=== PATIENT | female | born 2000 ===

== ENCOUNTER 2019-08-06 10:13 | Inpatient (IN) | payer OTHER ==
[~2019-08-06] VITALS: Ht 165.1 cm; Wt 65.8 kg
[2019-08-06] MEDS ORDERED: PRENATAL CAPLE1 EAC1 PO (10:38)
== END 2019-08-08 13:09 | disposition home or self-care (01) | DRG 807 ==
LOC: OB/GYN 10:13 → LDR 10:13 → OB/GYN 17:26
PROVIDERS: ADMIT Obstetrics & Gynecology
PROC: 10E0XZZ Delivery of Products of Conception, External Approach (ICD-10-PCS; principal; 2019-08-06)
PROC: 0W8NXZZ Division of Female Perineum, External Approach (ICD-10-PCS; 2019-08-06)
PROC: 0UQMXZZ Repair Vulva, External Approach (ICD-10-PCS; 2019-08-06)
PROC: 4A1HXCZ Monitoring of Products of Conception, Cardiac Rate, External Approach (ICD-10-PCS; 2019-08-06)
DX: O71.82 Other specified trauma to perineum and vulva (principal); Z37.0 Single live birth; Z3A.39 39 weeks gestation of pregnancy